=== PATIENT | female | born 1940 | race Caucasian/White ===

== ENCOUNTER 2017-02-20 16:47 | Emergency (ER) | payer MEDICARE, BC ==
[2017-02-20] MEDS ORDERED: Sodium Chloride 0.9% 5 ML Syringe FLUSH PRN (16:53)
[2017-02-20] MEDS ORDERED: Sodium Chloride 0.9% 1,000 ML IV ONE (16:53)
[2017-02-20] MEDS ORDERED: Ondansetron 4 MG/2 ML SDV IVPUSH ONE (16:57)
[2017-02-20] MEDS ORDERED: HYDROmorphone 1 MG/ML Syringe IVPUSH ONE ×2 (16:57→18:34)
[2017-02-20 16:59] VITALS: BP 175/84
--- NOTE | 2017-02-20 16:59 | EDM.PDOC ---
ED HPI GENERAL MEDICAL PROBLEM - General Chief Complaint: Gastrointestinal Problem Stated Complaint: ABDOMINAL PAIN Time Seen by Provider: 02/20/17 16:47 Source of Information: Reports: Patient History Limitations: Reports: No Limitations - History of Present Illness INITIAL COMMENTS - FREE TEXT/NARRATIVE: 77 YO WF presents to ER complaining of upper abdominal pain with associated nausea which began 5 hours ago. Pt reports pain is in upper abdomen and radiates to her back. Pt denies any chest pain or shortness of breath. Pt has had cholecystectomy in the remote past. Pt denies any fever/chills. Onset: Today Onset Date: 02/20/17 Onset Time: 12:00 Duration: Hour(s): (5) Location: Reports: Abdomen Quality: Reports: Ache Severity: Moderate Improves with: Reports: None Worsens with: Reports: None Associated Symptoms: Reports: Nausea/Vomiting. Denies: Chest Pain, Cough, Fever /Chills, Rash, Shortness of Breath Abdomen Pain Score (Numeric/FACES): 10 - Related Data Allergies Allergy/AdvReac Type Severity Reaction Status Date / Time Sulfa (Sulfonamide Allergy Hives Verified 03/13/16 23:22 Antibiotics) Home Meds: Home Meds . [No Known Home Meds] 03/13/16 [History] Past Medical History HEENT History: Reports: Impaired Vision Social & Family History - Tobacco Use Smoking Status *Q: Former Smoker - Recreational Drug Use Recreational Drug Use: No ED ROS GENERAL - Review of Systems Review Of Systems: See Below Constitutional: Reports: No Symptoms HEENT: Reports: No Symptoms Respiratory: Reports: No Symptoms Cardiovascular: Reports: No Symptoms Endocrine: Reports: No Symptoms GI/Abdominal: Reports: Abdominal Pain, Nausea : Reports: No Symptoms Musculoskeletal: Reports: No Symptoms Skin: Reports: No Symptoms Neurological: Reports: No Symptoms Psychiatric: Reports: No Symptoms Hematologic/Lymphatic: Reports: No Symptoms Immunologic: Reports: No Symptoms ED EXAM, GI/ABD - Physical Exam Exam: See Below Exam Limited By: No Limitations General Appearance: Alert, WD/WN, Mild Distress Nose: Normal Inspection, Normal Mucosa, No Blood Throat/Mouth: Normal Inspection, Normal Lips, Normal Teeth, Normal Gums, Normal Oropharynx, Normal Voice, No Airway Compromise Head: Atraumatic, Normocephalic Neck: Normal Inspection, Supple, Non-Tender, Full Range of Motion Respiratory/Chest: No Respiratory Distress, Lungs Clear, Normal Breath Sounds, No Accessory Muscle Use, Chest Non-Tender Cardiovascular: Normal Peripheral Pulses, Regular Rate, Rhythm, No Edema, No Gallop, No JVD, No Murmur, No Rub GI/Abdominal Exam: Normal Bowel Sounds, Soft, No Organomegaly, No Distention, No Abnormal Bruit, No Mass, Pelvis Stable, Tender (generalized) Back Exam: Normal Inspection, Full Range of Motion, NT Extremities: Normal Inspection, Normal Range of Motion, Non-Tender, Normal Capillary Refill, No Pedal Edema Neurological: Alert, Oriented, CN II-XII Intact, Normal Cognition, Normal Gait, Normal Reflexes, No Motor/Sensory Deficits Psychiatric: Normal Affect, Normal Mood Skin Exam: Warm, Dry, Intact, Normal Color, No Rash Course - Vital Signs Last Recorded V/S: Last Vital Signs Temp 35.1 C L 02/20/17 16:55 Pulse 60 02/20/17 16:55 Resp 20 02/20/17 16:55 BP 175/84 H 02/20/17 16:55 Pulse Ox 97 02/20/17 16:55 - Orders/Labs/Meds Orders: Active Orders 24 hr Category Date Time Status Peripheral IV Care [RC] . DIRECTED Care 02/20/17 16:53 Active Abdomen Pelvis w Cont [CT] Stat Exams 02/20/17 16:57 Taken Sodium Chloride 0.9% [Syrex Flush] Med 02/20/17 16:53 Active 5 ml FLUSH Q8HR PRN Peripheral IV Insertion Adult [OM.PC] Routine Oth 02/20/17 16:53 Ordered Medication Orders Sodium Chloride (Syrex Flush) 5 ml FLUSH Q8HR PRN PRN Reason: Keep Vein Open Labs: Laboratory Tests 02/20/17 02/20/17 02/20/17 Range/Units 17:11 17:11 18:13 WBC 14.3 H (5.0-10.0) 10^3/uL RBC 4.59 (3.80-5.50) 10^6/uL Hgb 12.3 (12.0-16.0) g/dL Hct 37.2 (37.0-47.0) % MCV 81.1 L (82.0-92.0) fL MCH 26.8 L (27.0-31.0) pg MCHC 33.0 (32.0-36.0) g/dL RDW 16.7 H (11.5-14.5) % Plt Count 446 H (150-300) 10^3/uL MPV 9.0 (7.4-10.4) fL Neut % (Auto) 83.5 H (50.0-70.0) % Lymph % (Auto) 12.3 L (20.0-40.0) % Taylor % (Auto) 2.8 (2.0-8.0) % Eos % (Auto) 0.6 L (1.0-3.0) % Baso % (Auto) 0.8 (0.0-1.0) % Neut # (Auto) 11.9 H (2.5-7.0) 10^3/uL Lymph # (Auto) 1.8 (1.0-4.0) 10^3/uL Taylor # (Auto) 0.4 (0.1-0.8) 10^3/uL Eos # (Auto) 0.1 (0.1-0.3) 10^3/uL Baso # (Auto) 0.1 (0.0-0.1) 10^3/uL Sodium 138 (136-145) mmol/L Potassium 3.2 L (3.3-5.3) mmol/L Chloride 103 (98-115) mmol/L Carbon Dioxide 21.9 (21.0-32.0) mmol/L BUN 17 (6-25) mg/dL Creatinine 1.03 (0.51-1.17) mg/dL Est Cr Clr Drug Dosing 36.64 mL/min Estimated GFR (MDRD) 52 mL/min Glucose 153 H (70-110) mg/dL Calcium 9.3 (8.7-10.3) mg/dL Total Bilirubin 0.6 (0.2-1.0) mg/dL AST 22 (15-37) U/L ALT 31 (12-78) U/L Alkaline Phosphatase 102 (46-116) IU/L Total Protein 7.5 (6.4-8.2) g/dL Albumin 4.08 (3.00-4.80) g/dL Lipase 155 (73-393) U/L Specimen Type Urinvoid Urine Color Yellow (YELLOW) Urine Appearance Clear (CLEAR) Urine pH 7.0 (5.0-9.0) Ur Specific [place] 1.020 (1.005-1.030) Urine Protein Negative (NEGATIVE) mg/dL Urine Glucose (UA) Negative (NEGATIVE) mg/dL Urine Ketones 15 H (NEGATIVE) mg/dL Urine Occult Blood Negative (NEGATIVE) Urine Nitrite Negative (NEGATIVE) Urine Bilirubin Negative (NEGATIVE) Urine Urobilinogen 1.0 (0.2-1.0) E.U./dL Ur Leukocyte Esterase Negative (NEGATIVE) Urine RBC Not seen /HPF Urine WBC 0-5 /HPF Ur Epithelial Cells Many H /LPF Amorphous Sediment Few (0/HPF) /HPF Urine Bacteria Rare (NONE TO FEW) /HPF Urine Mucus Rare H (NEGATIVE) /LPF Meds: Medications Generic Name Dose Route Start Last Admin Trade Name Freq PRN Reason Stop Dose Admin Sodium Chloride 5 ml 02/20/17 16:53 Syrex Flush FLUSH Q8HR PRN Keep Vein Open Discontinued Medications Generic Name Dose Route Start Last Admin Trade Name [place] PRN Reason Stop Dose Admin Hydromorphone HCl 1 mg 02/20/17 16:57 02/20/17 17:23 Dilaudid IVPUSH 02/20/17 16:58 1 mg ONETIME ONE Administration Hydromorphone HCl 1 mg 02/20/17 18:34 02/20/17 18:50 Dilaudid IVPUSH 02/20/17 18:35 1 mg ONETIME ONE Administration Sodium Chloride 1,000 mls @ 999 mls/hr 02/20/17 16:53 02/20/17 18:51 Normal Saline IV 02/20/17 17:53 999 mls/hr .BOLUS ONE Administration Iopamidol 100 ml 02/20/17 17:15 02/20/17 17:50 Isovue-300 (61%) IVPUSH 02/20/17 17:16 99 ml ONETIME ONE Administration Ondansetron HCl 4 mg 02/20/17 16:57 02/20/17 17:13 Zofran IVPUSH 02/20/17 16:58 4 mg ONETIME ONE Administration Sodium Chloride 50 ml 02/20/17 17:15 02/20/17 17:50 Normal Saline FLUSH 02/20/17 17:16 50 ml ONETIME ONE Administration - Radiology Interpretation Free Text/Narrative:: CT abd/pelvis- Departure - Departure Time of Disposition: 18:58 Disposition: DC/Tfer to Acute Hospital 02 Condition: Serious Clinical Impression: Small bowel obstruction - Discharge Information Referrals: Lucy Matthew MD [Primary Care Provider] - Forms: Interfacility Transfer EMTALA - My Orders Last 24 Hours: My Active Orders 02/20/17 16:53 Peripheral IV Care [RC] . DIRECTED Sodium Chloride 0.9% [Syrex Flush] 5 ml FLUSH Q8HR PRN Peripheral IV Insertion Adult [OM.PC] Routine 02/20/17 16:57 Abdomen Pelvis w Cont [CT] Stat - Assessment/Plan Last 24 Hours: My Active Orders 02/20/17 16:53 Peripheral IV Care [RC] . DIRECTED Sodium Chloride 0.9% [Syrex Flush] 5 ml FLUSH Q8HR PRN Peripheral IV Insertion Adult [OM.PC] Routine 02/20/17 16:57 Abdomen Pelvis w Cont [CT] Stat Assessment:: 1. small bowel obstruction- high grade with early signs of ischemia- no perforation Plan: 1. NGT to intermittent wall suction 2. transfer to [facility] for surgical evaluation- Dr Estrella
[2017-02-20] MEDS ORDERED: Sodium Chloride 0.9% 50 ML SDV FLUSH ONE (17:15)
[2017-02-20] MEDS ORDERED: Iopamidol 612 MG/ML 100 ML Bottle IVPUSH ONE (17:15)
[2017-02-20] MEDS ORDERED: Sodium Chloride 0.9% 1,000 ML ONE (19:34)
== END 2017-02-20 19:45 ==
LOC: KA.ED 16:47
DX: K56.60 Unspecified intestinal obstruction (principal); Z87.891 Personal history of nicotine dependence; Z90.49 Acquired absence of other specified parts of digestive tract; Z88.2 Allergy status to sulfonamides
CPT/HCPCS: 74177; 80053; 81001; 83690; 85025; 96361; 96374; 96375; 96376; 99285; J1170; J2405; J7030; Q9967

== ENCOUNTER 2021-01-10 12:27 | Emergency (ER) | payer MEDICARE, BC ==
[2021-01-10 12:48] VITALS: BP 124/81; PULSE 61
--- NOTE | 2021-01-10 13:46 | CR ---
[id number] RAD/RAD Foot Right 3V Min Exam: RAD Foot Right 3V Min Indication:PAIN, INJURY. Comparison: No prior imaging for comparison. 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 Findings include joint space narrowing. Valgus angulation of the 2nd through 4th MTP articulations as well. Lateral view demonstrates linear mineralized structure 3 mm posterior to the posterior tibial malleolus. Finding is nonspecific. Lack of joint effusion suggests that this is a chronic finding. No evidence of an acute fracture or dislocation. Wayne Vega MD 01/10/21 1994 Thank you for allowing us to participate in the care of your patient.
--- NOTE | 2021-01-10 14:28 | EDM.PDOC ---
ED HPI GENERAL MEDICAL PROBLEM - General Stated Complaint: FALL,, R? ANKLE PAIN Time Seen by Provider: 01/10/21 12:39 Source of Information: Reports: Patient, Other (friend) History Limitations: Reports: No Limitations - History of Present Illness INITIAL COMMENTS - FREE TEXT/NARRATIVE: Patient presents with right foot and ankle pain after falling and landing with left knee pushed against medial right ankle. The lateral foot and ankle are painful. No other pain or injuries. No LOC. Right Foot Pain Score (Numeric/FACES): 6 - Related Data Allergies Allergy/AdvReac Type Severity Reaction Status Date / Time atorvastatin [From Lipitor] Allergy Joint Pain Verified 01/10/21 12:42 Sulfa (Sulfonamide Allergy Hives Verified 01/10/21 12:42 Antibiotics) Home Meds: Home Meds Losartan [Cozaar] 12.5 mg PO DAILY 02/20/17 [History] Metoprolol Tartrate [Lopressor] 12.5 mg PO Q12HR 02/20/17 [History] Rosuvastatin Calcium 20 mg PO DAILY 05/02/17 [History] Aspirin [Adult Low Dose Aspirin EC] 81 mg PO DAILY 01/10/21 [History] Past Medical History HEENT History: Reports: Impaired Vision Cardiovascular History: Reports: Stents Gastrointestinal History: Reports: Bowel Obstruction - Past Surgical History Cardiovascular Surgical History: Reports: Coronary Artery Stent Social & Family History - Tobacco Use Tobacco Use Status *Q: Never Tobacco User - Caffeine Use Caffeine Use: Reports: None - Recreational Drug Use Recreational Drug Use: No Review of Systems - Review of Systems Review Of Systems: See Below Constitutional: Denies: Chills, Fever, Weakness Eyes: Denies: Vision Change Ears: Denies: Dizziness Nose: Denies: Epistaxis Mouth/Throat: Denies: Bleeding, Hoarse Voice, Muffled Voice Respiratory: Denies: Shortness of Breath, Cough Cardiovascular: Denies: Chest Pain, Syncope GI/Abdominal: Denies: Abdominal Pain, Nausea, Vomiting Genitourinary: Denies: Dysuria Musculoskeletal: Reports: Foot Pain. Denies: Neck Pain, Shoulder Pain, Arm Pain, Back Pain, Hand Pain, Leg Pain Skin: Denies: Cyanosis, Jaundice, Mottled, Pallor, Diaphoresis Neurological: Reports: Difficulty Walking (painful right foot). Denies: Confusion, Dizziness, Headache, Seizure, Syncope, Trouble Speaking, Change in Speech Psychiatric: Denies: Confusion, Depression ED EXAM, GENERAL - Physical Exam Exam: See Below Exam Limited By: No Limitations General Appearance: Alert, WD/WN, No Apparent Distress Eye Exam: Bilateral Eye: EOMI, Normal Inspection, PERRL Ears: Normal External Exam, Hearing Grossly Normal (chronic mild impairment) Nose: Normal Inspection, No Blood Throat/Mouth: Normal Inspection, Normal Lips, Normal Voice, No Airway Compromise Head: Atraumatic, Normocephalic Neck: Normal Inspection, Full Range of Motion Respiratory/Chest: No Respiratory Distress, Lungs Clear, Normal Breath Sounds (there was an initial wheeze that cleared with repeated breaths) Cardiovascular: Regular Rate, Rhythm, No Murmur Back Exam: Normal Inspection, Full Range of Motion Extremities: Normal Inspection (of LLE and UEs), Normal Range of Motion (LLE and UEs), Normal Capillary Refill, Other (Right ankle is tender inferior to lateral malleolus and lateral dorsal midfoot. Lateral metatarsal, bilat malleolar prominences are not tender to palpation and no deformity.). No: Mottled, Pallor Neurological: Alert, Oriented, Normal Cognition, No Motor/Sensory Deficits Psychiatric: Normal Affect, Normal Mood Skin Exam: Warm, Dry, Intact, Normal Color, No Rash Course - Vital Signs Last Recorded V/S: Last Vital Signs Temp 97.9 F 01/10/21 12:42 Pulse 61 01/10/21 12:42 Resp 18 01/10/21 12:42 BP 124/81 01/10/21 12:42 Pulse Ox 95 01/10/21 12:42 - Re-Assessments/Exams Free Text/Narrative Re-Assessment/Exam: 01/10/21 14:37 Xrays show no acute fracture or pathology but there is some chronic arthritis changes. I discussed findings and recommendations with patient. Offered crutches to limited WTB but she declined and wants to try the boot or shoe for support and comfort. A CAM boot was fitted and applied after wrap with JONATHON bandage. Pt discharged to home in stable condition. Departure - Departure Time of Disposition: 14:23 Disposition: Home, Self-Care 01 Condition: Good Clinical Impression: Sprain of right ankle Qualifiers: Encounter type: initial encounter Involved ligament of ankle: anterior talofibular ligament Qualified Code(s): S93.491A - Sprain of other ligament of right ankle, initial encounter Right foot sprain Qualifiers: Encounter type: initial encounter Qualified Code(s): S93.601A - Unspecified sprain of right foot, initial encounter - Discharge Information Instructions: Ankle Sprain, [id number], Foot Sprain Referrals: Lucy Matthew MD [Primary Care Provider] - Additional Instructions: Wear the boot as needed for comfort and support. If this isn't improving in 7-10 days, follow up with your PCP for recheck. Ice and elevated the right foot as needed to control swelling. You can use OTC meds such as Tylenol or Ibuprofen as directed for pain control. Sepsis Event Note (ED) - Evaluation Sepsis Screening Result: No Definite Risk - Focused Exam Vital Signs: Vital Signs Temp Pulse Resp BP Pulse Ox 01/10/21 12:42 97.9 F 61 18 124/81 95
== END 2021-01-10 14:45 | disposition home or self-care (01) ==
LOC: KA.ED 12:27
DX: S93.401A Sprain of unspecified ligament of right ankle, initial encounter (principal); S93.601A Unspecified sprain of right foot, initial encounter; Z79.82 Long term (current) use of aspirin; Z79.899 Other long term (current) drug therapy; Z88.2 Allergy status to sulfonamides; Z88.8 Allergy status to other drugs, medicaments and biological substances; Z95.5 Presence of coronary angioplasty implant and graft; W18.39XA Other fall on same level, initial encounter; Y92.009 Unspecified place in unspecified non-institutional (private) residence as the place of occurrence of the external cause
CPT/HCPCS: 73630-RT; 99283; 99283-25

== ENCOUNTER 2021-04-28 21:40 | Emergency (ER) | payer MEDICARE, BC ==
--- NOTE | 2021-04-28 22:05 | EDM.PDOC ---
ED HPI GENERAL MEDICAL PROBLEM - General Chief Complaint: Abdominal Pain Stated Complaint: abd pain Time Seen by Provider: 04/28/21 22:05 Source of Information: Reports: Patient History Limitations: Reports: No Limitations - History of Present Illness INITIAL COMMENTS - FREE TEXT/NARRATIVE: Michelle, 81-year-old female, presents with abdominal pain very cantankerous attitude over her health. States that this is 4 days persistent with no bowel movement for 3 days and got very minimal output and was difficult at that time. States not eating much so that may be the reason. It is noted she did not have a AAA repair as she stated she was all worked up for it and then they cancelled that at the last minute. Has no nausea now but states it was previous. States she has had some difficulty with urine as well but is very nonspecific in that. With any questioning she becomes very irritable in the discussion over her health status and how she is unfortunate in her diagnosis and treatment. Onset Date: 04/25/21 Duration: Day(s):, Getting Worse Location: Reports: Abdomen, Back Right Lower Abdomen Pain Score (Numeric/FACES): 5 - Related Data Allergies Allergy/AdvReac Type Severity Reaction Status Date / Time atorvastatin [From Lipitor] Allergy Joint Pain Verified 04/28/21 22:10 Sulfa (Sulfonamide Allergy Hives Verified 04/28/21 22:10 Antibiotics) Home Meds: Home Meds Metoprolol Tartrate [Lopressor] 12.5 mg PO BID 02/20/17 [History] Rosuvastatin Calcium 20 mg PO DAILY 05/02/17 [History] Aspirin [Adult Low Dose Aspirin EC] 81 mg PO DAILY 01/10/21 [History] tiZANidine HCl [Tizanidine HCl] 4 mg PO DAILY 04/29/21 [History] Past Medical History HEENT History: Reports: Hard of Hearing, Impaired Vision Cardiovascular History: Reports: Aneurysm, High Cholesterol, NE, Stents Respiratory History: Reports: None Gastrointestinal History: Reports: Bowel Obstruction Psychiatric History: Reports: None - Past Surgical History Cardiovascular Surgical History: Reports: Coronary Artery Stent - Past Imaging History Past Imaging History: Reports: CAT Scan, Xray Social & Family History - Family History Family Medical History: No Pertinent Family History - Caffeine Use Caffeine Use: Reports: None ED ROS GENERAL - Review of Systems Review Of Systems: Comprehensive ROS is negative, except as noted in HPI. ED EXAM, GENERAL - Physical Exam Exam: See Below Free Text/Narrative:: Alert and oriented and very irritated mood. She complains that she cannot hear as I approached the bed. HEENT is negative discharge or deformity. [place] moist mucous membranes. Neck soft supple Thorax overall clear with no wheezes nor crackles. Cardiac S1 is 2 with no appreciated murmur. Bowel sounds are present, x 4 She is tender predominantly to the right side states it radiates into her back but there is no percussive tenderness into the flank area on either side. There is no pain or pressure over the urinary bladder which she states it does not feel right. There is no edema to the lower extremities. She moves about with abdominal discomfort. When questioned if she has had any trauma or falls she states in January. I try to clarify the fact that recently when the abdominal pain started, and she goes on in detail about how black her ankles became at that time. In reviewing of the [place] chart I return to bedside to talk with her about her aneurysm and she becomes very irritated about how big work-up was performed and the surgery was canceled and she was not accepted for other types due to risk. [place] chart is noted that there was a mention of going into [place] for specialty services. She denies this occurring. Course - Vital Signs Last Recorded V/S: Last Vital Signs Temp 97.9 F 04/28/21 22:00 Pulse 88 04/29/21 00:11 Resp 16 04/29/21 00:11 BP 156/93 H 04/29/21 00:11 Pulse Ox 98 04/29/21 00:11 - Orders/Labs/Meds Orders: Active Orders 24 hr Category Date Time Status Peripheral IV Care [RC] . DIRECTED Care 04/28/21 22:12 Active Ang Chest [CT] Stat Exams 04/28/21 23:08 Ordered Chest 2V [CR] Stat Exams 04/28/21 22:11 Ordered Acetaminophen/HYDROcodone [[place] 325-5 MG] Med 04/29/21 01:13 Ordered 2 tab PO Q4H PRN Sodium Chloride 0.9% [Normal Saline] 50 ml Med 04/28/21 23:30 Active IV ASDIRECTED Sodium Chloride 0.9% [Saline Flush] Med 04/28/21 22:10 Active 10 ml FLUSH Q8HR PRN Peripheral IV Insertion Adult [OM.PC] Stat Oth 04/28/21 22:11 Ordered Medication Orders Hydrocodone Bitart/Acetaminophen (Acetaminophen/Hydrocodone 325-5 Mg Tab) 2 tab PO Q4H PRN PRN Reason: Abdominal Pain Last Admin: 04/29/21 01:18 Dose: 2 tab Documented by: Sodium Chloride (Normal Saline) 50 mls @ 200 mls/min IV ASDIRECTED FILOMENA Last Admin: 04/28/21 23:59 Dose: 200 mls/min Documented by: ENDECAY Sodium Chloride (Sodium Chloride 0.9% 10 Ml Syringe) 10 ml FLUSH Q8HR PRN PRN Reason: keep vein open Labs: Laboratory Tests 04/28/21 04/28/21 04/28/21 Range/Units 22:11 22:22 22:22 WBC 11.91 H (5.00-10.00) 10^3/uL RBC 4.59 (3.80-5.50) 10^6/uL Hgb 14.8 (12.0-16.0) g/dL Hct 42.4 (37.0-47.0) % MCV 92.4 H (82.0-92.0) fL MCH 32.2 H (27.0-31.0) pg MCHC 34.9 (32.0-36.0) g/dL RDW 13.7 (11.5-14.5) % Plt Count 294 (150-400) 10^3/uL MPV 10.7 H (7.4-10.4) fL Immature Gran % (Auto) 0.3 (0.0-5.0) % Neut % (Auto) 72.7 H (50.0-70.0) % Lymph % (Auto) 16.1 L (20.0-40.0) % [place] % (Auto) 9.6 H (2.0-8.0) % Eos % (Auto) 0.8 L (1.0-3.0) % Baso % (Auto) 0.5 (0.0-1.0) % Neut # (Auto) 8.65 H (2.50-7.00) 10^3/uL Lymph # (Auto) 1.92 (1.00-4.00) 10^3/uL [place] # (Auto) 1.14 H (0.10-0.80) 10^3/uL Eos # (Auto) 0.10 (0.10-0.30) 10^3/uL Baso # (Auto) 0.06 (0.00-0.10) 10^3/uL Immature Gran # (Auto) 0.04 (0.00-0.50) 10^3/uL Sodium 137 (136-145) mmol/L Potassium 3.3 L (3.5-5.1) mmol/L Chloride 101 (98-107) mmol/L Carbon Dioxide 21.9 (21.0-32.0) mmol/L Anion Gap 17.4 H (5-15) mmol/L BUN 24 H (7-18) mg/dL Creatinine 1.20 H (0.51-1.17) mg/dL Est Cr Clr Drug Dosing 29.38 mL/min Estimated GFR (MDRD) 43 mL/min Glucose 119 (70-140) mg/dL Lactic Acid (0.4-2.0) mmol/L Calcium 9.0 (8.7-10.3) mg/dL Total Bilirubin 0.6 (0.2-1.0) mg/dL AST 23 (15-37) U/L ALT 31 (14-63) U/L Alkaline Phosphatase 81 (46-116) U/L Total Protein 7.0 (6.4-8.2) g/dL Albumin 3.39 L (3.40-5.00) g/dL Amylase 62 (25-125) U/L Lipase 115 (73-393) U/L Specimen Type Urincc Urine Color Yellow (YELLOW) Urine Appearance Clear (CLEAR) Urine pH 5.5 (5.0-9.0) Ur Specific [place] >= 1.030 (1.005-1.030) Urine Protein 30 H (NEGATIVE) mg/dL Urine Glucose (UA) Negative (NEGATIVE) mg/dL Urine Ketones Trace H (NEGATIVE) mg/dL Urine Occult Blood Trace-intact H (NEGATIVE) Urine Nitrite Negative (NEGATIVE) Urine Bilirubin Small H (NEGATIVE) Urine Urobilinogen 1.0 (0.2-1.0) E.U./dL Ur Leukocyte Esterase Negative (NEGATIVE) U Hyaline Cast (Auto) Moderate Urine RBC 0-5 (0-5) /HPF Urine WBC 0-5 (0-5) /HPF Ur Epithelial Cells Many H /LPF Other Crystals Few /HPF Urine Bacteria Few (NONE TO FEW) /HPF Urine Mucus Few H (NEGATIVE) /LPF 04/28/21 Range/Units 22:22 WBC (5.00-10.00) 10^3/uL RBC (3.80-5.50) 10^6/uL Hgb (12.0-16.0) g/dL Hct (37.0-47.0) % MCV (82.0-92.0) fL MCH (27.0-31.0) pg MCHC (32.0-36.0) g/dL RDW (11.5-14.5) % Plt Count (150-400) 10^3/uL MPV (7.4-10.4) fL Immature Gran % (Auto) (0.0-5.0) % Neut % (Auto) (50.0-70.0) % Lymph % (Auto) (20.0-40.0) % [place] % (Auto) (2.0-8.0) % Eos % (Auto) (1.0-3.0) % Baso % (Auto) (0.0-1.0) % Neut # (Auto) (2.50-7.00) 10^3/uL Lymph # (Auto) (1.00-4.00) 10^3/uL [place] # (Auto) (0.10-0.80) 10^3/uL Eos # (Auto) (0.10-0.30) 10^3/uL Baso # (Auto) (0.00-0.10) 10^3/uL Immature Gran # (Auto) (0.00-0.50) 10^3/uL Sodium (136-145) mmol/L Potassium (3.5-5.1) mmol/L Chloride (98-107) mmol/L Carbon Dioxide (21.0-32.0) mmol/L Anion Gap (5-15) mmol/L BUN (7-18) mg/dL Creatinine (0.51-1.17) mg/dL Est Cr Clr Drug Dosing mL/min Estimated GFR (MDRD) mL/min Glucose (70-140) mg/dL Lactic Acid 0.8 (0.4-2.0) mmol/L Calcium (8.7-10.3) mg/dL Total Bilirubin (0.2-1.0) mg/dL AST (15-37) U/L ALT (14-63) U/L Alkaline Phosphatase (46-116) U/L Total Protein (6.4-8.2) g/dL Albumin (3.40-5.00) g/dL Amylase (25-125) U/L Lipase (73-393) U/L Specimen Type Urine Color (YELLOW) Urine Appearance (CLEAR) Urine pH (5.0-9.0) Ur Specific [place] (1.005-1.030) Urine Protein (NEGATIVE) mg/dL Urine Glucose (UA) (NEGATIVE) mg/dL Urine Ketones (NEGATIVE) mg/dL Urine Occult Blood (NEGATIVE) Urine Nitrite (NEGATIVE) Urine Bilirubin (NEGATIVE) Urine Urobilinogen (0.2-1.0) E.U./dL Ur Leukocyte Esterase (NEGATIVE) U Hyaline Cast (Auto) Urine RBC (0-5) /HPF Urine WBC (0-5) /HPF Ur Epithelial Cells /LPF Other Crystals /HPF Urine Bacteria (NONE TO FEW) /HPF Urine Mucus (NEGATIVE) /LPF Meds: Medications Generic Name Dose Route Start Last Admin Trade Name Freq PRN Reason Stop Dose Admin Hydrocodone Bitart/Acetaminophen 2 tab 04/29/21 01:13 04/29/21 01:18 Acetaminophen/Hydrocodone 325-5 Mg Tab PO 2 tab Q4H PRN Administration Abdominal Pain Sodium Chloride 50 mls @ 200 mls/min 04/28/21 23:30 04/28/21 23:59 Normal Saline IV 200 mls/min ASDIRECTED FILOMENA Administration Sodium Chloride 10 ml 04/28/21 22:10 Sodium Chloride 0.9% 10 Ml Syringe FLUSH Q8HR PRN keep vein open Discontinued Medications Generic Name Dose Route Start Last Admin Trade Name Freq PRN Reason Stop Dose Admin Sodium Chloride 1,000 mls @ 999 mls/hr 04/28/21 22:12 04/28/21 22:39 Normal Saline IV 04/28/21 23:12 999 mls/hr .BOLUS ONE Administration Iopamidol 100 ml 04/28/21 23:28 04/28/21 23:59 Iopamidol 755 Mg/Ml 100 Ml Bottle IV 04/28/21 23:29 100 ml ONETIME ONE Administration Morphine Sulfate 1 mg 04/28/21 22:40 04/28/21 22:45 Morphine 2 Mg/Ml Syringe IVPUSH 04/28/21 22:41 1 mg ONETIME ONE Administration Ondansetron HCl 4 mg 04/28/21 22:40 04/28/21 22:44 Ondansetron 4 Mg/2 Ml Sdv IVPUSH 04/28/21 22:41 4 mg ONETIME ONE Administration Departure - Departure Time of Disposition: : Disposition: Home, Self-Care 01 Condition: Good Clinical Impression: Abdominal pain, CKD (chronic kidney disease) stage 3, GFR 30-59 ml/min, History of abdominal aortic aneurysm (AAA) - Discharge Information *PRESCRIPTION DRUG MONITORING PROGRAM REVIEWED*: Not Applicable *COPY OF PRESCRIPTION DRUG MONITORING REPORT IN PATIENT PHUC: Not Applicable Instructions: Chronic Kidney Disease, Adult, [id number] Referrals: Lucy Matthew MD [Physician] - Forms: ED Department Discharge Additional Instructions: Your testing tonight reveals your abdominal aortic aneurysm is slightly larger than 1 compared to the study done in [place] 08-13-2020 5.5 at largest diameter on the [place] CT. Tonight infrarenal aortic aneurysm with plaquing is measured at 6.3 x 7.5 x 13 cm. The right common iliac has increased 2.5 left common iliac 1.8. You have been provided with a copy of the report including chest x-ray. As your pain has improved and no other findings your request to go home with pain medication will be followed. You can take the hydrocodone pill anytime after 5 AM as needed. You should not drive with that for at least 2 to 3 hours. You should contact the clinic to discuss with Dr. Caro your concerns and follow-up issues as well as pain medication and management options. Continue to take your regular medications as ordered. It is important that you drink plenty of fluid to flush this IV contrast as you are kidney function is already slightly compromised, and contrast can enhance that factor. Call the clinic in the morning, return to the emergency department if situation arises outside of clinic hours. Sepsis Event Note (ED) - Focused Exam Vital Signs: Vital Signs Temp Pulse Resp BP Pulse Ox 04/29/21 00:11 88 16 156/93 H 98 04/28/21 22:00 97.9 F 76 18 145/92 H 96 - Problem List & Annotations (1) Abdominal pain SNOMED Code(s): 29987725 Code(s): R10.9 - UNSPECIFIED ABDOMINAL PAIN Status: Acute Priority: High Qualifiers: Abdominal location: generalized Qualified Code(s): R10.84 - Generalized abdominal pain (2) History of abdominal aortic aneurysm (AAA) SNOMED Code(s): 707230173 Code(s): Z86.79 - PERSONAL HISTORY OF OTHER DISEASES OF THE CIRCULATORY SYSTEM Status: Acute Priority: High (3) Hypokalemia SNOMED Code(s): 65678460 Code(s): E87.6 - HYPOKALEMIA Status: Acute Priority: High (4) CKD (chronic kidney disease) stage 3, GFR 30-59 ml/min SNOMED Code(s): 197343316 Code(s): N18.30 - CHRONIC KIDNEY DISEASE, STAGE 3 UNSPECIFIED Status: Acute Qualifiers: Chronic kidney disease stage 3 subtype: stage 3a (GFR 45-59) Qualified Code(s): N18.31 - Chronic kidney disease, stage 3a (5) AAA (abdominal aortic aneurysm) without rupture SNOMED Code(s): 10856986 Code(s): I71.4 - ABDOMINAL AORTIC ANEURYSM, WITHOUT RUPTURE Status: Chronic Priority: High - Problem List Review Problem List Initiated/Reviewed/Updated: Yes - My Orders Last 24 Hours: My Active Orders 04/28/21 22:10 Sodium Chloride 0.9% [Saline Flush] 10 ml FLUSH Q8HR PRN 04/28/21 22:11 Chest 2V [CR] Stat Peripheral IV Insertion Adult [OM.PC] Stat 04/28/21 22:12 Peripheral IV Care [RC] . DIRECTED 04/28/21 23:08 Ang Chest [CT] Stat 04/28/21 23:30 Sodium Chloride 0.9% [Normal Saline] 50 ml IV ASDIRECTED 04/29/21 01:13 Acetaminophen/HYDROcodone [[place] 325-5 MG] 2 tab PO Q4H PRN - Assessment/Plan Last 24 Hours: My Active Orders 04/28/21 22:10 Sodium Chloride 0.9% [Saline Flush] 10 ml FLUSH Q8HR PRN 04/28/21 22:11 Chest 2V [CR] Stat Peripheral IV Insertion Adult [OM.PC] Stat 04/28/21 22:12 Peripheral IV Care [RC] . DIRECTED 04/28/21 23:08 Ang Chest [CT] Stat 04/28/21 23:30 Sodium Chloride 0.9% [Normal Saline] 50 ml IV ASDIRECTED 04/29/21 01:13 Acetaminophen/HYDROcodone [[place] 325-5 MG] 2 tab PO Q4H PRN Plan: Your testing tonight reveals your abdominal aortic aneurysm is slightly larger than 1 compared to the study done in [place] 08-13-2020 5.5 at largest diameter on the [place] CT. Tonight infrarenal aortic aneurysm with plaquing is measured at 6.3 x 7.5 x 13 cm. The right common iliac has increased 2.5 left common iliac 1.8. You have been provided with a copy of the report including chest x-ray. As your pain has improved and no other findings your request to go home with pain medication will be followed. You can take the hydrocodone pill anytime after 5 AM as needed. You should not drive with that for at least 2 to 3 hours. You should contact the clinic to discuss with Dr. Caro your concerns and follow-up issues as well as pain medication and management options. Continue to take your regular medications as ordered. It is important that you drink plenty of fluid to flush this IV contrast as you are kidney function is already slightly compromised, and contrast can enhance that factor. Call the clinic in the morning, return to the emergency department if situation arises outside of clinic hours.
[2021-04-28] MEDS ORDERED: Sodium Chloride 0.9% 10 ML Syringe FLUSH PRN (22:10)
[2021-04-28] MEDS ORDERED: Sodium Chloride 0.9% 1,000 ML IV ONE (22:12)
[2021-04-28] MEDS ORDERED: Morphine 2 MG/ML SYRINGE IVPUSH ONE (22:40)
[2021-04-28] MEDS ORDERED: Ondansetron 4 MG/2 ML SDV IVPUSH ONE (22:40)
[2021-04-28 23:03] LABS: ANION GAP 17.4 mmol/L (5-15)
[2021-04-28] MEDS ORDERED: Iopamidol 755 Mg/ML 100 ML Bottle IV ONE (23:28)
[2021-04-28] MEDS ORDERED: Sodium Chloride 0.9% 50 ML IV SCH (23:30)
[2021-04-29 00:11] VITALS: BP 156/93; PULSE 88
[2021-04-29] MEDS ORDERED: Acetaminophen/HYDROcodone 325-5 MG Tab PO PRN (01:13)
--- NOTE | 2021-04-29 07:58 | CR ---
[id number] RAD/RAD Chest PA And Lateral EXAM: RAD Chest PA And Lateral INDICATION: ABDOMEN PAIN X4 DAYS COMPARISON: March 13, 2016. DISCUSSION: Mild linear scarring or atelectasis in the lung bases. Normal heart size. No effusions. Tortuous thoracic aorta containing calcifications. IMPRESSION: 1. No acute findings. Jorge Luis Morrow MD 04/29/21 0757 Thank you for allowing us to participate in the care of your patient.
--- NOTE | 2021-04-29 08:32 | CT ---
[id number] CT/CTA Chest Exam: CTA Chest Clinical Data: ABDOMINAL PAIN KNOWN ABDOMINAL AORTIC ANEURYSM COMPARISON: CORRELATION IS MADE WITH JUNE 13, 2020 FINDINGS: A 2.5 cm wide focal aneurysm is seen along the aortic arch just distal to the left subclavian artery CT of the chest was performed without IV contrast CT of the abdomen was performed without IV contrast CAT scan of the abdomen demonstrates a 7.5 cm diameter juxtarenal abdominal aortic aneurysm with right common iliac extension There currently is no evidence of rupture. There is no free air or free fluid. There is no bowel obstruction The liver and spleen, adrenals, and pancreas otherwise are unremarkable There are no lung masses or infiltrates There is no pleural effusion There is no mediastinal mass or adenopathy IMPRESSION: INTERVAL INCREASE IN SIZE OF ABDOMINAL AORTIC ANEURYSM SINCE LAST YEAR. ANEURYSM CURRENTLY 7.5 CM IN DIAMETER. PATIENT PRESENTED WITH PAIN SURGICAL CONSULTATION SUGGESTED BROAD-BASED SMALL ANEURYSMAL DILATATION THORACIC AORTIC ARCH Shar Vigil MD 04/29/21 0831 Thank you for allowing us to participate in the care of your patient.
== END 2021-04-29 01:30 | disposition home or self-care (01) ==
LOC: KA.ED 21:40
DX: I12.9 Hypertensive chronic kidney disease with stage 1 through stage 4 chronic kidney disease, or unspecified chronic kidney disease (principal); N18.30 Chronic kidney disease, stage 3 unspecified; E78.00 Pure hypercholesterolemia, unspecified; I25.2 Old myocardial infarction; Z86.79 Personal history of other diseases of the circulatory system; Z95.5 Presence of coronary angioplasty implant and graft; Z79.899 Other long term (current) drug therapy; Z88.2 Allergy status to sulfonamides; Z88.8 Allergy status to other drugs, medicaments and biological substances
CPT/HCPCS: 36415; 71046; 71275; 80053; 81001; 82150; 83605; 83690; 85025; 96374; 96375; 99284; A9270; J2270; J2405; J7030; Q9967